=== PATIENT | male | born 1955 | race Caucasian/White ===

== ENCOUNTER → 2016-09-24 | Outpatient (CLI) | payer BC ==
--- NOTE | 2016-09-24 18:56 | HKNOTE ---
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 The patient had a remarkably good experience in the hospital. He was discharged after 1 da y. He did not use any walking aids after he left the hospital. His only complaint is that he devel oped an itchy rash over his lower back. This is now almost completely resolved except for "some sca bs." PHYSICAL EXAMINATION: He is afebrile. His wound is completely healed. He has what looks like carlos chiae across his lower back and anterior abdomen and chest wall. MANAGEMENT: The patient will continue with his exercises. He declined a prescription for a cortiso ne lotion. He will be seen again in 3 weeks' time for reevaluation. Dictated By: LUIS M HAYWARD/SABINE Conf#: [id number] DID#: [id number]
== END | disposition home or self-care (01) ==
LOC: HKI 13:38
DX: Z47.1 Aftercare following joint replacement surgery (principal); Z96.641 Presence of right artificial hip joint
CPT/HCPCS: G0463

== ENCOUNTER → 2016-10-17 | Outpatient (CLI) | payer BC ==
--- NOTE | 2016-10-17 14:52 | RADRPT ---
PROCEDURE: XR pelvis/left hip. CLINICAL INDICATION: Hip pain TECHNIQUE: AP pelvis/lateral left hip view performed. COMPARISON: 03/05/2016 FINDINGS: There is a left total hip replacement. There is no evidence of loosening of the prosthesis. There is moderate right hip osteoarthrosis. This is associated with joint space narrowing, subchondr al sclerosis, subchondral cyst formation and osteophytosis. There is normal osseous mineralization. No fractures or osseous lesions are identified. The soft tissues are unremarkable. There is no ch masha in the prostatic calcifications. IMPRESSION: Left total hip replacement. Moderate right hip osteoarthrosis. RPTAT: HGDB .Manas Hogan MD, MD Date Time Electronically viewed and signed by .Manas Hogan MD, on 10/17/2016 14:51 .B/
--- NOTE | 2016-10-17 17:27 | HKNOTE ---
DATE OF SERVICE: 10/17/2016 clinic note HISTORY OF THE PRESENT ILLNESS: This is a 61-year-old male who presents today for 6 weeks postoperative visit for left total hip replacement revision surgery. The patient was discharged postop day 1 due to significant progress. The patient is ambulating without an ambulatory device. Denies any pain complaints. The patient does state that he has stiffness when he tries to sit cross legged with his left leg over the right. The patient has been ambulating normally. He would like to discuss when he is able to start driving. The patient does state today that he discontinued his DVT prophylaxis about 1 week early and he stopped his aspirin b.i.d. last week. PHYSICAL EXAMINATION: VITAL SIGNS: Blood pressure 119/77, temperature 98.1 degrees, pulse 70, respiratory rate 12, height 6 feet, weight 175 pounds. GENERAL: The patient has full range of motion to the left knee with flexion and extension. Limited range of motion with external rotation. No pain with range of motion on exam today. Normal strength. Wound site to the posterior left hip is clean, dry and intact and well healed scarring is seen. Normal sensory examination. Gait is normal and nonantalgic. IMAGING: X-ray to the left hip on 10/17/2016 showing all components appear well aligned and appear to be well attached and integrated to the bone, no signs of lucency between metal and bone. ASSESSMENT AND PLAN: The patient is doing well and may discontinue restrictions. It will be advised, however, no extreme activity such as sports until 3 months postop and the patient states understanding. The patient is advised to follow up in 3 months for cobalt chromium levels. He was advised by Dr. Ching that the patient may begin operating a motor vehicle in 1 week if he feels comfortable and confidant. The patient may discontinue DVT prophylaxis at this time. The patient advised that he may follow up sooner should he have any complications. Dental prophylaxis discussed as well as discontinuing hip restrictions. Dictated By: MARQUIS SUH for LUIS M CHING MD, KP/SABINE Conf#: [id number] DID#: [id number] MTDD
== END | disposition home or self-care (01) ==
LOC: HKI 14:17
DX: Z47.1 Aftercare following joint replacement surgery (principal); M25.652 Stiffness of left hip, not elsewhere classified; Z96.642 Presence of left artificial hip joint
CPT/HCPCS: 73502; G0463

== ENCOUNTER → 2017-01-23 | Outpatient (CLI) | payer BC ==
--- NOTE | 2017-01-24 04:15 | HKNOTE ---
DATE OF SERVICE: 01/23/2017 The patient comes in for checkup on his left hip. He has had revision of an ASR socket on 6. He comes in today for discussion about his cobalt and chromium levels. He has been taking a health food "chorella" which is supposed to bring his cobalt and chromium level s down. He is very pleased with the result of his revision surgery. He has no pain in the hip. He can walk as far as he likes and he is getting back into golf. PHYSICAL EXAMINATION: VITAL SIGNS: His temperature is 98.7, blood pressure is 120/85. HIPS: His gait is normal. The right hip has an excellent range of motion without pain. The left h ip has excellent range of motion without pain. The scar is still pinkish in color indicating it is not fully healed. LABORATORY DATA: On 03/05/2016, the serum cobalt level was 18.6 and the chromium was 14.3. On 12/22, the cobalt was 1.2 and the chromium was 3.9. Note that he is very pleased with the result of the fall in the cobalt and chromium levels. We spen t considerable time discussing whether or not they could go back up again or whether or not this ashly l have any manager intermediate effect on him. He was advised that the answer to both of those questions is "n o." The patient does not need to see me again unless he has any recurrence of problems with the hip. Dictated By: LUIS M HAYWARD/SABINE Conf#: [id number] DID#: [id number]
== END | disposition home or self-care (01) ==
LOC: HKI 14:37
DX: M25.552 Pain in left hip (principal)
CPT/HCPCS: G0463

== ENCOUNTER → 2017-03-04 | Outpatient (CLI) | payer BC ==
--- NOTE | 2017-03-05 10:48 | RADRPT ---
PROCEDURE: XR pelvis/left hip. CLINICAL INDICATION: Hip pain TECHNIQUE: AP pelvis/lateral left hip view available for review. COMPARISON: 10/17/2016 FINDINGS: There is a left total hip replacement. There is no evidence of loosening of the prosthesis. There is moderate right hip osteoarthrosis. This is associated with joint space narrowing, subchondr al sclerosis, subchondral cyst formation and osteophytosis. There is normal osseous mineralization. No fractures or osseous lesions are identified. The soft tissues are unremarkable. There is no smith e in the prostatic calcifications. IMPRESSION: Left total hip replacement. Moderate right hip osteoarthrosis. Unchanged from the previous examination RPTAT: HGDB .Manas Hogan MD, Date Time Electronically viewed and signed by .Manas Hogan MD, on 03/05/2017 10:48 .B/
== END | disposition home or self-care (01) ==
LOC: HKI 14:55
DX: M25.552 Pain in left hip (principal); M16.11 Unilateral primary osteoarthritis, right hip; Z96.642 Presence of left artificial hip joint
CPT/HCPCS: 73502; G0463